=== PATIENT | male | born 1960 | race Caucasian/White ===

== ENCOUNTER 2021-10-23 02:17 | Day surgery (SDC) | payer OTHER, SELFPAY ==
[2021-10-13 13:21] VITALS: BMI 28.1
--- NOTE | 2021-10-23 08:05 | P.PNAN_ITS ---
Anes - Initial Pre Proc Eval Procedure: Operation Date: 10/23/21 09:00 Proposed Procedures p Screening Colonoscopy - Grant Brown MD Date/Time: 10/23/21 08:05 Surgeon: Grant Brown MD Pre Op Diagnosis: hx of colon polyps Patient Data Age: 61 Gender: M Height: 1.75 m Weight: 86.5 kg Allergies Allergy/AdvReac Type Severity Reaction Status Date / Time No Known Drug Allergies Allergy Unknown none Verified 10/23/21 08:20 Home Medications Medication Instructions Recorded Confirmed Type aspirin 81 mg tablet,delayed 81 mg PO DAILY #90 tablet 09/23/19 10/23/21 Rx release allopurinol 100 mg tablet 100 mg PO DAILY #90 tablet 09/12/21 10/23/21 Rx icosapent ethyl 1 gram capsule 4 g PO ONCE #360 cap 09/12/21 10/23/21 Rx rosuvastatin 10 mg tablet 10 mg PO DAILY #90 tablet 09/12/21 10/23/21 Rx Patient hx anesthesia problems: none Family hx anesthesia problems: none Results Review: All pre-operative results and documents have been reviewed as part of the pre-operative evaluation. [facility] Past Medical History Medical History (Updated 10/20/21 @ 19:07 by Rajesh Ruiz DO) Mixed hyperlipidemia Obstructive sleep apnea cpap Polycythemia Surgical History Surgical History (Updated 09/12/21 @ 10:09 by Caitlin Wynn DO) H/O lithotripsy S/P TURP Family History Family History Mother Carcinoma of colon Hypertension Heart disease Father Acute myocardial infarction Sibling Diabetes mellitus Social History Social History Smoking status: Never smoker Second hand tobacco smoke exposure: No Alcohol intake: never Substance use: never Substance use type: does not use Living arrangements: with family 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 Informed Consent: The patient's anesthetic plan and its attendant risks and benefits were discussed with the patient/family/POA. Questions were solicited and answers provided to the satisfaction of the patient/family/POA.
[2021-10-23 08:15] VITALS: BP 153/101; PULSE 96; RESP 18; TEMP 36.8; O2SAT 98; BMI 27.9
[2021-10-23] MEDS: LACTATED RINGERS 1,000 ML 150 ML IV CONT (08:31)
--- NOTE | 2021-10-23 08:57 | PM.HPGS ---
History of Present Illness History of Present Illness Consent: Risks, benefits, and alternatives have been discussed and questions answered. Patient agrees to proceed with procedure. Chief complaint: hx of colon polyps Narrative: Talha Joiner is a 61 year old male with colon polyp in 2013 Review of Systems Constitutional: Constitutional: Denies headache(s) and Denies weakness Eyes: Eyes: Denies blurry vision ENT: Reports Normal hearing present, Denies headache(s) and Denies neck pain Cardiovascular: Cardiovascular: Denies chest pain and Denies dyspnea Respiratory: Respiratory: Denies dyspnea Gastrointestinal: Gastrointestinal: Reports no additional gastrointestinal complaints Genitourinary: Genitourinary: Denies dysuria Musculoskeletal: Musculoskeletal: Denies neck pain Integumentary/Breasts: Skin/Breast: Denies dry skin Neurologic: Reports Normal hearing present, Denies headache(s) and Denies weakness Psychiatric: Psychiatric: Denies anxiety Endocrine: Endocrine: Denies change in body appearance Hematologic/Lymphatic: Hematologic/Lymphatic: Denies easy bleeding Allergic/Immunologic: Allergic/Immunologic: Denies urticaria PMFSH Past Medical History Medical History (Updated 10/20/21 @ 19:07 by Rajesh Ruiz DO) Mixed hyperlipidemia Obstructive sleep apnea cpap Polycythemia Surgical History Surgical History (Updated 09/12/21 @ 10:09 by Caitlin Wynn DO) H/O lithotripsy S/P TURP Family History Family History Mother Carcinoma of colon Hypertension Heart disease Father Acute myocardial infarction Sibling Diabetes mellitus Social History Social History Smoking status: Never smoker Second hand tobacco smoke exposure: No Alcohol intake: never Substance use: never Substance use type: does not use Living arrangements: with family 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 Gender identity (if verbalized by the patient): Male Spiritual care concerns: No Meds Home Medications and Allergies Home Medications Medication Instructions Recorded Confirmed Type aspirin 81 mg tablet,delayed 81 mg PO DAILY #90 tablet 09/23/19 10/23/21 Rx release allopurinol 100 mg tablet 100 mg PO DAILY #90 tablet 09/12/21 10/23/21 Rx icosapent ethyl 1 gram capsule 4 g PO ONCE #360 cap 09/12/21 10/23/21 Rx rosuvastatin 10 mg tablet 10 mg PO DAILY #90 tablet 09/12/21 10/23/21 Rx Allergies Allergy/AdvReac Type Severity Reaction Status Date / Time No Known Drug Allergies Allergy Unknown none Verified 10/23/21 08:20 Vital Signs Vital Signs - 24 hr 10/23/21 08:15 Temperature 98.2 F Pulse Rate 96 Respiratory Rate 18 Blood Pressure 153/101 H Pulse Oximetry 98 Exam Const: General: comfortable and no acute distress HENMT: General nose exam: Normal nares present Eyes: General: appearance normal, both eyes and all related structures Neck: Neck: no JVD Resp: Auscultation: clear to auscultation bilaterally Cardio: Rate: regular rate Rhythm: regular rhythm GI: Inspection: non-distended GI Palp: Yes Soft to palpation Skin: General skin exam: normal color Neuro: General: gait normal Speech: normal speech Extrem: General: normal to inspection Psych: Mental Status: mental status grossly normal Assessment and Plan Assessment and plan (1) Colon cancer screening: Code(s): Z12.11 - Encounter for screening for malignant neoplasm of colon Status: Acute Assessment and Plan: colonoscopy
[2021-10-23 09:18] VITALS: BP 122/83; PULSE 79; RESP 15; O2SAT 96
[2021-10-23 09:28] VITALS: BP 116/81; PULSE 68; RESP 18; O2SAT 97
[2021-10-23 09:38] VITALS: BP 132/73; PULSE 68; RESP 17; O2SAT 99
== END 2021-10-23 09:48 | disposition home or self-care (01) ==
PROVIDERS: PCP Family Medicine; Visit Provider Internal Medicine Gastroenterology
PROC: 0DJD8ZZ Inspection of Lower Intestinal Tract, Via Natural or Artificial Opening Endoscopic (ICD-10-PCS; CPT 45378; principal; 2021-10-23 09:00)
DX: Z12.11 Encounter for screening for malignant neoplasm of colon (principal); D12.2 Benign neoplasm of ascending colon; E78.2 Mixed hyperlipidemia; G47.33 Obstructive sleep apnea (adult) (pediatric); D75.1 Secondary polycythemia; K57.30 Diverticulosis of large intestine without perforation or abscess without bleeding; K64.8 Other hemorrhoids
CPT/HCPCS: 45385; 88305; J2704; J7120

== ENCOUNTER 2024-08-19 07:21 | Outpatient (CLI) | payer MEDICARE, SELFPAY ==
--- NOTE | ~2024-08-19 | US_ITS ---
US abdomen limited INDICATION: Abnormal levels of serum enzymes. PROCEDURE: Realtime right upper abdominal ultrasound. COMPARISON: No prior studies for comparison. FINDINGS: The pancreas is normal without focal mass or pancreatic ductal dilation. Liver echotexture is increased, consistent with fatty infiltration. There is normal directional flow in the portal ve in. The gallbladder is normal without stones, gallbladder wall thickening or pericholecystic fluid. Comm on bile duct measures 5 mm. No sonographic Reynolds's sign. IMPRESSION: 1: Fatty infiltration of the liver. Reviewed, dictated and finalized at location B.
== END 2024-08-19 07:22 | disposition home or self-care (01) ==
PROVIDERS: PCP Nurse Practitioner Family; Visit Provider Nurse Practitioner Family
DX: R74.8 Abnormal levels of other serum enzymes (principal); K76.0 Fatty (change of) liver, not elsewhere classified
CPT/HCPCS: 76705